=== PATIENT | male | born 1970 | race Caucasian/White ===

== ENCOUNTER 2021-09-24 21:58 | Observation (INO) | payer OTHER ==
[~2021-09-24] VITALS: Ht 188 cm; Wt 90.7 kg
[2021-09-24 22:11] VITALS: BP 145/90
[2021-09-24 23:13] LABS: ABSOLUTE LYMPHOCYTES 1.1 thou/uL (0.8-5.3); ABSOLUTE MONOCYTES 0.9 thou/uL (0.0-1.2); ABSOLUTE NEUTROPHILS 12.2 thou/uL (1.6-8.1); BASOPHILS 0.3 %; EOSINOPHILS 0.3 %; HEMATOCRIT 43.4 % (42.0-52.0); LYMPHOCYTES 7.8 %; MCHC 34.5 g/dL (28.0-37.0); MONOCYTES 6.6 %; MPV 7.7 fl. (7.2-11.1); NUCLEATED RBCS 0 /100WBC; PLATELET COUNT* 196 thou/uL (150-400); RBC 4.83 mil/uL (4.50-6.00); RDW-CV 12.9 % (10.5-14.5); WBC 14.3 thou/uL (4.0-11.0)
[2021-09-24 23:14] LABS: URINE BILIRUBIN NEGATIVE (Negative); URINE BLOOD TRACE (Negative); URINE CLARITY CLEAR; URINE COLOR YELLOW; URINE GLUCOSE-RANDOM NEGATIVE (Negative); URINE KETONES TRACE (Negative); URINE LEUKOCYTES-REFLEX NEGATIVE (Negative); URINE NITRITE-REFLEX NEGATIVE (Negative); URINE PROTEIN NEGATIVE (Negative); URINE SPECIFIC GRAVITY 1.015 (1.005-1.030); URINE UROBILINOGEN 0.2 E.U./dl (0.2-1.0)
[2021-09-24 23:18] LABS: CALCIUM 8.3 mg/dL (8.5-10.1); CREATININE 0.9 mg/dL (0.6-1.3); POTASSIUM 3.2 mmol/L (3.5-5.1)
[2021-09-24 23:23] LABS: AMP/METHAMP Negative (Negative); BARBITURATES Negative (Negative); BENZODIAZEPINES Negative (Negative); COCAINE Negative (Negative); METHADONE Negative (Negative); OPIATES Negative (Negative); PCP Negative (Negative); THC Negative (Negative)
[2021-09-24 23:23] LABS: ALBUMIN 3.7 g/dL (3.4-5.0); TOTAL BILIRUBIN 1.3 mg/dL (<0.1-1.0); TOTAL PROTEIN 7.4 g/dL (6.4-8.2)
[2021-09-25 09:16] VITALS: BP 108/74
--- NOTE | 2021-09-25 09:17 | EKG ---
[place] [address] ELECTROCARDIOGRAM REPORT Name: RENEE PORTILLO Room: [place] [address] ADM IN [facility]#: [id number] Admission: 09/25/21 Attend Phys: Davy Cervantes Discharge: Date of : 72 Date of Service: 09/24/212232 Report #: [id number] THIS REPORT FOR: //name// [facility] ED Test Date: 2021-09-24 Test Time: 22:33:56 Pat Name: RENEE PORTILLO Department: Room: [facility] Gender: M Filter Tip Catcher: LUIS : 1970 Requested By: Angelique Rivera Order Number: [id number] MD: Papito Wolff Measurements Intervals Walker Rate: 73 P: 39 LA: 147 QRS: 15 QRSD: 90 T: 49 QT: 393 QTc: 433 Interpretive Statements Sinus rhythm Probable left atrial enlargement Borderline ST depression, lateral leads Baseline wander in lead(s) I,III,aVR,aVL No previous ECG available for comparison Electronically Signed On 09-25-2021 9:16:58 FOOD PRODUCTION ASSOCIATE by Papito Wolff [email or web address] <ELECTRONICALLY SIGNED> By: Papito Wolff MD, [facility] 09/25/2116 32 32 Papito Wolff MD, [facility] /EPI
[2021-09-25 12:08] VITALS: BP 108/74
--- NOTE | 2021-09-25 12:50 | NUR ---
CM COMPLETED ASSESSMENT WITH PT WHO INDICATED HE LIVES IN HOME WITH AND CHILDREN. PT IS ACTIVE AND INDEPENDENT WITH CARES, AND DRIVES A VEHICLE. PT DENIES HX WITH HH OR SNF. PT HAS NO DMES. CM TO CONT TO FOLLOW.
[2021-09-25 18:20] VITALS: BP 108/74
--- NOTE | 2021-09-27 09:32 | OP ---
[address] [address] OPERATIVE REPORT Name: RENEE PORTILLO Donna Room: [address]Martir#: [id number] Admission: 09/25/21 Attend Phys: Donna Stinson Discharge: 09/25/21 Date of : 72 Report #: [id number] THIS REPORT FOR: cc: Minor Mejia Adam J DO Gazzetta, Joshua D. DO ~ cc: Minor Mejia DO DATE OF SURGERY: 09/25/2021 PREOPERATIVE DIAGNOSIS: Acute appendicitis. POSTOPERATIVE DIAGNOSIS: Acute appendicitis. PROCEDURE PERFORMED: Laparoscopic appendectomy. SURGEON: Davy Cervantes DO CO-SURGEON: Bryan Rodriguez DO, PGY-5 BLACK JACK DEALER: Leroy PGY1. ANESTHESIA: General and local. FINDINGS: Acute appendicitis with localized peritonitis. ESTIMATED BLOOD LOSS: 10 mL. SPECIMEN: Appendix. COMPLICATIONS: None. INDICATIONS: The patient is a 51-year-old male who came to the emergency room with complaint of acute onset right lower quadrant abdominal pain. CT scan did correlate with physical exam, indicating acute appendicitis. We discussed the need for laparoscopic appendectomy. We discussed risks, benefits and alternatives at length and he agreed to proceed with surgery. DESCRIPTION OF PROCEDURE: After consent was obtained, the patient was taken to the operating room and placed in the supine position. SCDs applied to bilateral lower extremities, safety belt placed across the patient's waist. Zosyn was given in the perioperative period and this was continued during surgery. The patient underwent general endotracheal anesthesia without any complication. The patient's abdomen was prepped and draped in the standard sterile fashion. Timeout was performed to confirm the patient and procedure. An 11 blade scalpel was used to make an infraumbilical incision [place] [address] OPERATIVE REPORT Name: RENEE PORTILLO Room: [address] Zee#: [id number] Admission: 09/25/21 Attend Phys: Donna Stinson Discharge: 09/25/21 Date of : 72 Report #: [id number] retractor was used to bluntly dissect down to the level of fascia. Once the fascia was encountered, it was grasped between 2 Kochers and elevated. Fascia was scored with electrocautery. Hemostat was used to bluntly enter the peritoneum. Finger sweep was performed to confirm no intraabdominal adhesions. A 12 mm Chalo trocar was inserted into the abdomen and secured in place. Insufflation was initiated. Camera was inserted into the abdomen. Intraabdominal contents were inspected. There was some evidence of dilated loops of small bowel along with some fluid in the pelvis. There were bilateral inguinal hernias that were visualized. We then placed two more 5 mm trocars, one in the suprapubic and one in the left lower quadrant under direct visualization. The tinea of the cecum was traced to the base of the appendix. The appendix was curled back along the cecum up towards the liver. The tip of the appendix was identified. The mesoappendix was then ligated with LigaSure device. A window was created at the base of the appendix, where it met the cecum using a [place] dissector. Once the space was created, a 45 purple load Endo-PATRICIA stapling device was fired across the base of the appendix. There was no residual stump against the cecum. The rest of the mesoappendix was taken down with our LigaSure. The appendix was then placed in laparoscopic EndoCatch bag. The staple line was evaluated for any bleeding. Once hemostasis was ensured, insufflation was let down. All trocars were removed under direct visualization and the appendix and its contents were removed from the infraumbilical trocar site. Infraumbilical fascia was reapproximated with one stitch of 0 Vicryl in a [id number] fashion. Subcutaneous tissue reapproximated with 3-0 Vicryl. All skin incisions were reapproximated with 4-0 Monocryl. Sterile skin glue applied to all incisions. All needle, instrument and sponge counts were correct x2 at the end of the case. The patient was then awoken from general anesthesia and transferred to PACU in a stable condition. <ELECTRONICALLY SIGNED> By: Davy Cervantes DO 09/27/21 0932 [id number] [id number] Cervantes DO /nt
== END 2021-09-25 18:45 | disposition home or self-care (01) ==
LOC: M.ERS 21:58 → M.TBA-ER 09-25 03:13
PROVIDERS: Personal Emergency Response Attendant; ADMIT Surgery; ATTEND Surgery
DX: K35.80 Unspecified acute appendicitis (principal); Z20.822 Contact with and (suspected) exposure to COVID-19

== ENCOUNTER → 2021-12-21 | Outpatient (CLI) | payer OTHER ==
[~2021-12-21] MED LIST: NOHOMEMEDICATIONS; OXYCODONE HCL 55 MG PO; VITAMIN C250 MG PO
== END ==
LOC: M.LAB 10:47
PROVIDERS: ATTEND Surgery
DX: Z01.812 Encounter for preprocedural laboratory examination (principal); Z20.822 Contact with and (suspected) exposure to COVID-19

== ENCOUNTER → 2021-12-22 | Day surgery (SDC) | payer OTHER ==
--- NOTE | ~2021-12-22 | OP ---
[address] [address] OPERATIVE REPORT Name: RENEE PORTILLO Room: [facility]#: [id number] Admission: 12/22/21 Attend Phys: Minor Taveras DO Discharge: Date of : 72 Report #: [id number] THIS REPORT FOR: cc: Minor Mejia, Minor Servin DO ~ cc: Minor Mejia DO DATE OF SURGERY: 12/22/2021 REFERRING PHYSICIAN: Minor Mejia DO PREOPERATIVE DIAGNOSIS: Bilateral inguinal hernias. POSTOPERATIVE DIAGNOSES: A left indirect inguinal hernia and a right direct inguinal hernia. PROCEDURE: Da Claire robotic-assisted bilateral inguinal hernia repair with mesh. SURGEON: Minor Taveras DO CARE MANAGEMENT ASSOCIATE: Ervin Driscoll DO, PGY2 resident. ANESTHESIA: General endotracheal and TAP blocks. ESTIMATED BLOOD LOSS: Less than 20 mL COMPLICATIONS: None. DESCRIPTION OF PROCEDURE: After obtaining proper consents and discussing risks and complications with the patient, he was taken to the operating room, laid in the supine position and administered general anesthesia. He was then prepped and draped in the usual sterile fashion. A timeout was performed. We confirmed the appropriate patient and procedure. Preoperative antibiotics had been given. SCDs were in place. TAP blocks were also performed by Anesthesia prior to prepping and draping. We then made a small supraumbilical skin incision with a #11 scalpel blade. This was carried down through the skin and the subcutaneous tissue using electrocautery for hemostasis. Once the fascia was encountered, it was incised along the midline, grasped and elevated with Rome clamps and divided further. The peritoneum was then bluntly opened using a hemostat. We then placed two 0 Vicryl sutures in a [id number] fashion to secure the da Claire camera port, which was then inserted and insufflation was begun. Once insufflation was complete, full visual inspection of the anterior abdominal organs was performed. This revealed a left indirect inguinal hernia, which was moderate in size. There was a right direct inguinal hernia, [place] [address] OPERATIVE REPORT Name: RENEE PORTILLO Room: [facility]#: [id number] Admission: 12/22/21 Attend Phys: Minor Taveras DO Discharge: Date of : 72 Report #: [id number] larger in size. We then placed two more da Claire ports, one in the right upper quadrant, one in the left upper quadrant. We then docked the da Claire robot. Once the robot was docked, we inserted a monopolar scissors in the right upper quadrant and bipolar fenestrated grasper in the left upper quadrant. I then broke scrub and went on console. Once on console, I was able to open the peritoneum from the median umbilical ligament laterally to the ASIS starting on the patient's left side. I then dissected the preperitoneal space using blunt dissection and electrocautery until I was able to get well below the pubic ramus. I then continued my dissection laterally. Checking the direct space and femoral space for any hernias, there were none identified. I then dissected the indirect inguinal hernia sac free from the spermatic cord and then continued the dissection all the way out laterally until I reached the ASIS and made the pocket large enough for a 10 x 15 cm ProGrip mesh. The mesh was then inserted and opened in place. I then closed the peritoneum using running 2-0 absorbable V-Loc suture. I then turned my attention to the right side where we similarly opened the peritoneum from the median umbilical ligament laterally to the ASIS. I then dissected the preperitoneal space all the way down to the pubic ramus and 2 cm below that. I then continued my dissection laterally. We encountered a moderate-sized direct inguinal hernia, which was easily reduced. Once this was reduced back into the peritoneal cavity, I continued dissection all the way laterally across the femoral space also checking for an indirect inguinal hernia and cord lipoma, which we found neither of. I then continued the dissection all the way out to the ASIS where we made the preperitoneal space, large enough to allow for a 10 x 15 cm anatomic ProGrip mesh. Again, the mesh was opened in its entirety. The peritoneum was then closed over top of this using a running 2-0 absorbable V-Loc suture. There were 2 small holes identified in the peritoneum, which were repaired using 2-0 Vicryl suture. We then removed all the needles from the abdominal cavity. I then rescrubbed and went back to the patient's bedside where I undocked the da Claire robot. We removed all the trocars under direct vision. I closed the umbilical fascia using the 2 previously placed 0 Vicryl sutures plus 2 additional 0 Vicryl sutures. Skin incisions were all closed using 4-0 Monocryl and Dermabond. The patient was awakened in the operating room and transported to recovery room in stable condition. By: [id number] Taveras DO /lanie
== END | disposition home or self-care (01) ==
LOC: M.SUR
PROVIDERS: ATTEND Surgery
DX: K40.20 Bilateral inguinal hernia, without obstruction or gangrene, not specified as recurrent (principal); Z98.890 Other specified postprocedural states; Z79.899 Other long term (current) drug therapy; Z88.8 Allergy status to other drugs, medicaments and biological substances